=== PATIENT | female | born 1975 | race Caucasian/White ===

== ENCOUNTER 2016-06-17 12:27 | Emergency (ER) | payer OTHER ==
[~2016-06-17] VITALS: Ht 162.6 cm; Wt 80.0 kg
[~2016-06-17 12:27] MED LIST: CITA10TA4 PO; TRAM50TA2 PO
[2016-06-17 14:22] LABS: PATH.CAST-FLAG NOT PRESENT; SPERM-FLAG NOT PRESENT; SRC-FLAG NOT PRESENT; XTAL-FLAG NOT PRESENT; YLC-FLAG NOT PRESENT
[2016-06-17] MEDS ORDERED: KETOROLAC 30 MG/1 ML IVPush ONE (15:00)
[2016-06-17] MEDS ORDERED: SODIUM CHLORIDE 0.9% 1,000ML IV ONE (15:00)
[2016-06-17] MEDS ORDERED: SODIUM CHLORIDE FLUSH 10ML SYR IVF ONE (15:00)
[2016-06-17] MEDS ORDERED: KETOROLAC 30 MG/1 ML ONE (15:16)
[2016-06-17] MEDS ORDERED: HYDROmorphone 1 MG/ML, 1ML ONE ×2 (15:16→16:54)
[2016-06-17 15:19] LABS: HEMOGLOBIN 13.7 g/dL (11.7-16.4)
[2016-06-17] MEDS: HYDROmorphone 1 MG/ML, 1ML IVPush PRN ×2 (15:20→16:56)
[2016-06-17 15:29] LABS: ASPARTATE AMINO TRANSFERASE 66 U/L (15-37); BLOOD UREA NITROGEN 18 mg/dL (7-18)
[2016-06-17 16:25] VITALS: BP 129/77
== END 2016-06-17 17:22 | disposition home or self-care (01) ==
LOC: ED 16:30
DX: M54.5 Low back pain (principal); E86.0 Dehydration; M54.2 Cervicalgia; G89.29 Other chronic pain; F32.9 Major depressive disorder, single episode, unspecified; F11.10 Opioid abuse, uncomplicated; Z98.1 Arthrodesis status; Z98.84 Bariatric surgery status; Z98.890 Other specified postprocedural states
CPT/HCPCS: 36415; 72125; 72131; 80053; 81001; 81003; 84703; 85025; 96361; 96374; 96375; 96376; 99285; J1170; J1885; J7030